=== PATIENT | female | born 1985 | race Asian ===

== ENCOUNTER 2023-04-11 14:02 | Outpatient (CLI) | payer OTHER | END 2023-04-11 18:10 | disposition home or self-care (01) | LOC: SUS 14:02 | PROVIDERS: ATTEND Nurse Practitioner Family | DX: E04.2 Nontoxic multinodular goiter (principal); E03.9 Hypothyroidism, unspecified | CPT/HCPCS: 76536-TC ==

== ENCOUNTER 2023-04-18 09:16 | Outpatient (CLI) | payer OTHER ==
[2023-04-18 10:16] LABS: BASOPHILS % (AUTO) 0.5 % (0.0-2.0); EOSINOPHILS # (AUTO) 0.1 K/uL (0.0-0.4); EOSINOPHILS % (AUTO) 1.1 % (0.0-4.0); HEMATOCRIT 39.2 % (36-48); HEMOGLOBIN 12.5 g/dL (12.0-16.0); LYMPHOCYTES % (AUTO) 29.1 % (20.5-51.5); MEAN CORPUSCULAR HEMOGLOBIN 28 pg (27-31); MEAN CORPUSCULAR HGB CONC 32 % (32-36); MEAN CORPUSCULAR VOLUME 87 fL (79.0-98.0); MONOCYTES # (AUTO) 0.4 K/uL (0.0-1.0); MONOCYTES % (AUTO) 5.5 % (1.7-9.3); NEUTROPHILS # (AUTO) 4.4 K/uL (1.8-7.7); NEUTROPHILS % (AUTO) 63.8 % (40.0-70.0); PLATELET COUNT (AUTO) 170 K/uL (130-430); RED BLOOD CELL COUNT(AUTO) 4.53 MIL/uL (4.2-6.2); RED CELL DISTRIBUTION WIDTH 14.4 % (9.0-15.0); WHITE BLOOD COUNT (AUTO) 6.9 K/uL (4.8-10.8)
[2023-04-18 10:20] LABS: ERYTHROCYTE SEDIMENTATION RATE 25 MM/HR (0-20)
[2023-04-18 11:19] LABS: ALBUMIN 3.5 g/dL (3.4-4.8); CALCIUM 8.5 mg/dL (8.4-11.0); CREATININE 0.7 mg/dL (0.55-1.30); FREE T4 (FREE THYROXINE) 1.3 ng/dl (0.8-1.5); POTASSIUM 3.8 mmol/L (3.5-5.1); THYROID STIMULATING HORMONE 3.44 uIu/mL (0.36-3.74); TOTAL BILIRUBIN 0.7 mg/dL (0.0-1.0); TOTAL PROTEIN, SERUM 7.3 g/dL (6.4-8.3)
[2023-04-19 09:07] LABS: ANTI NUCLEAR AB WITH REFLEX Negative (Negative)
[2023-04-19 13:07] LABS: THYROID PEROXIDASE (TPO) AB <9 IU/mL (0-34)
== END 2023-04-18 17:39 | disposition home or self-care (01) ==
LOC: SLB 09:16
PROVIDERS: ATTEND Nurse Practitioner Family
DX: Z00.00 Encounter for general adult medical examination without abnormal findings (principal); E78.5 Hyperlipidemia, unspecified; R53.83 Other fatigue; M79.10 Myalgia, unspecified site; E55.9 Vitamin D deficiency, unspecified
CPT/HCPCS: 36415; 80053; 80061; 82306; 84439; 84443; 85025; 85651-TC; 86038; 86376

== ENCOUNTER 2023-08-27 11:48 | Emergency (ER) | payer OTHER ==
[~2023-08-27] VITALS: Ht 152.4 cm; Wt 84.4 kg
[2023-08-27 11:56] VITALS: BP_SYST 132; PULSE 89; RESP 18; TEMP 98.5; O2SAT 100
[2023-08-27] MEDS ORDERED: SOM350 PO (13:50)
[2023-08-27] MEDS ORDERED: IBUP-1969 PO (13:50)
[2023-08-27 19:14] VITALS: BP_SYST 132; PULSE 89; RESP 18; TEMP 98.5; O2SAT 100
== END 2023-08-27 14:15 | disposition home or self-care (01) ==
LOC: SED 11:48
DX: S33.5XXA Sprain of ligaments of lumbar spine, initial encounter (principal); Z79.899 Other long term (current) drug therapy; V89.2XXA Person injured in unspecified motor-vehicle accident, traffic, initial encounter; Y93.89 Activity, other specified; Y92.89 Other specified places as the place of occurrence of the external cause; Y99.8 Other external cause status
CPT/HCPCS: 72040-TC; 72148; 99284

== ENCOUNTER 2023-10-21 22:17 | Emergency (ER) | payer OTHER ==
[~2023-10-21] VITALS: Ht 162.6 cm; Wt 86.2 kg
[~2023-10-21 22:17] MED LIST: IBUP-1969 PO; SOM350 PO
[2023-10-21 22:29] VITALS: BP_SYST 113; PULSE 61; RESP 16; TEMP 98.1; O2SAT 100
[2023-10-21] MEDS: NACL 0.9% 1,000 ML IV ONE (22:55)
[2023-10-21 23:24] LABS: BASOPHILS % (AUTO) 0.3 % (0.0-2.0); EOSINOPHILS # (AUTO) 0.1 K/uL (0.0-0.4); EOSINOPHILS % (AUTO) 1.4 % (0.0-4.0); HEMATOCRIT 35.9 % (36-48); HEMOGLOBIN 12.2 g/dL (12.0-16.0); LYMPHOCYTES % (AUTO) 36.2 % (20.5-51.5); MEAN CORPUSCULAR HEMOGLOBIN 29 pg (27-31); MEAN CORPUSCULAR HGB CONC 34 % (32-36); MEAN CORPUSCULAR VOLUME 86 fL (79.0-98.0); MONOCYTES # (AUTO) 0.5 K/uL (0.0-1.0); MONOCYTES % (AUTO) 6.3 % (1.7-9.3); NEUTROPHILS # (AUTO) 4.6 K/uL (1.8-7.7); NEUTROPHILS % (AUTO) 55.8 % (40.0-70.0); PLATELET COUNT (AUTO) 204 K/uL (130-430); RED BLOOD CELL COUNT(AUTO) 4.18 MIL/uL (4.2-6.2); RED CELL DISTRIBUTION WIDTH 13.9 % (9.0-15.0); WHITE BLOOD COUNT (AUTO) 8.2 K/uL (4.8-10.8)
[2023-10-21] MEDS: ONDANSETRON HCL 4 MG/2 ML VIAL IVP ONE (23:26)
[2023-10-21] MEDS: metroNIDAZOLE 500 mg/NS 100 ML IV ONE (23:27)
[2023-10-21] MEDS: KETOROLAC TROMETHAMINE 30 MG VIAL IVP ONE (23:27)
[2023-10-21 23:28] LABS: CALCIUM 9.4 mg/dL (8.4-11.0); CREATININE 0.79 mg/dL (0.55-1.30); POTASSIUM 3.8 mmol/L (3.5-5.1)
[2023-10-21 23:32] LABS: ALBUMIN 3.5 g/dL (3.4-4.8); BILIRUBIN,DIRECT 0.1 mg/dL (0.0-0.3); TOTAL BILIRUBIN 0.3 mg/dL (0.0-1.0); TOTAL PROTEIN, SERUM 7.7 g/dL (6.4-8.3)
[2023-10-22 01:30] VITALS: BP_SYST 99; PULSE 68; RESP 16; TEMP 97.7; O2SAT 98
[2023-10-22 02:28] LABS: BILIRUBIN,URINE NEGATIVE (NEGATIVE); COLOR,URINE YELLOW (YELLOW); GLUCOSE,URINE NEGATIVE (NEGATIVE); KETONES,URINE NEGATIVE (NEGATIVE); LEUKOCYTE ESTERASE ,URINE NEGATIVE (NEGATIVE); NITRITE, URINE NEGATIVE (NEGATIVE); PROTEIN URINE NEGATIVE (NEGATIVE); UROBILINOGEN,URINE 0.2 (0.2-1.0)
[2023-10-22 02:30] LABS: BLOOD, URINE 1+ (NEGATIVE); CLARITY/URINE HAZY (CLEAR)
[2023-10-22 02:31] LABS: BACTERIA,URINE None Seen /HPF (None Seen); WBC,URINE 0-3 /HPF (0-3)
[2023-10-22] MEDS ORDERED: METR-154 PO (05:01)
== END 2023-10-22 05:10 | disposition home or self-care (01) ==
LOC: SED 22:17
DX: A09 Infectious gastroenteritis and colitis, unspecified (principal); R10.9 Unspecified abdominal pain; Z79.899 Other long term (current) drug therapy
CPT/HCPCS: 99285; 96365; 96375; 96361; 80076; 80048; 81001; 85025; 87040; 36415; 83605; 81000; 74176; 81015; J1885; J3490; J2405; J7030

== ENCOUNTER 2024-01-02 19:49 | Emergency (ER) | payer OTHER ==
[~2024-01-02] VITALS: Ht 152.4 cm; Wt 86.2 kg
[~2024-01-02 19:49] MED LIST changes: +METR-154 PO
[2024-01-02 19:51] VITALS: BP_SYST 153; PULSE 107; RESP 18; TEMP 98; O2SAT 98
[2024-01-02 20:44] LABS: BASOPHILS % (AUTO) 0.5 % (0.0-2.0); EOSINOPHILS # (AUTO) 0.1 K/uL (0.0-0.4); EOSINOPHILS % (AUTO) 2.4 % (0.0-4.0); HEMATOCRIT 36.3 % (36-48); HEMOGLOBIN 12.3 g/dL (12.0-16.0); LYMPHOCYTES # (AUTO) 1.7 K/uL (1.0-5.5); LYMPHOCYTES % (AUTO) 32.8 % (20.5-51.5); MEAN CORPUSCULAR HEMOGLOBIN 29 pg (27-31); MEAN CORPUSCULAR HGB CONC 34 % (32-36); MEAN CORPUSCULAR VOLUME 85 fL (79.0-98.0); MONOCYTES # (AUTO) 0.6 K/uL (0.0-1.0); MONOCYTES % (AUTO) 11.2 % (1.7-9.3); NEUTROPHILS # (AUTO) 2.7 K/uL (1.8-7.7); NEUTROPHILS % (AUTO) 53.1 % (40.0-70.0); PLATELET COUNT (AUTO) 153 K/uL (130-430); RED BLOOD CELL COUNT(AUTO) 4.26 MIL/uL (4.2-6.2); RED CELL DISTRIBUTION WIDTH 13.4 % (9.0-15.0); WHITE BLOOD COUNT (AUTO) 5.2 K/uL (4.8-10.8)
[2024-01-02 21:23] LABS: ANION GAP 10 (5-15); CALCIUM 8.7 mg/dL (8.4-11.0); CARBON DIOXIDE 27 mmol/L (23-29); CHLORIDE 106 mmol/L (98-107); CREATININE 0.79 mg/dL (0.55-1.30); GFR AFRICAN AMERICAN 105 mL/min (>90); GLUCOSE 89 mg/dL (74-106); POTASSIUM 3.4 mmol/L (3.5-5.1); SODIUM SERUM 143 mmol/L (136-145); UREA NITROGEN, BLOOD 6 mg/dL (8-21)
[2024-01-02 21:25] LABS: GFR NON AFRICAN-AMERICAN 87 mL/min (>90)
[2024-01-02] MEDS: ALBUTEROL SULFATE 0.083% 2.5 MG/3 ML VIAL.NEB INH ONE (21:29)
[2024-01-02] MEDS: IPRATROPIUM BROM 0.5 MG/2.5 ML VIAL.NEB (ATROVENT) INH ONE (21:30)
[2024-01-02] MEDS: ACETAMINOPHEN 500 MG TABLET PO ONE (22:00)
[2024-01-02] MEDS: KETOROLAC TROMETHAMINE 15 MG VIAL IVP ONE (22:05)
[2024-01-02] MEDS ORDERED: PRED20TA PO (22:27)
[2024-01-02] MEDS ORDERED: ALBMDI INH (22:27)
[2024-01-02] MEDS: predniSONE 20 MG TABLET PO ONE (22:36)
[2024-01-02 22:45] VITALS: BP_SYST 106; PULSE 102; RESP 20; TEMP 98.1; O2SAT 98
[2024-01-02 23:19] LABS: COVID19 ANTIGEN SOFIA FIA NEGATIVE (NEGATIVE)
[2024-01-02 23:41] LABS: INFLUENZA TYPE A Negative (NEGATIVE); INFLUENZA TYPE B NEGATIVE (NEGATIVE)
== END 2024-01-02 22:45 | disposition home or self-care (01) ==
LOC: SED 19:49
DX: J45.901 Unspecified asthma with (acute) exacerbation (principal); J20.9 Acute bronchitis, unspecified; R07.9 Chest pain, unspecified; B34.9 Viral infection, unspecified; Z20.822 Contact with and (suspected) exposure to COVID-19; R00.0 Tachycardia, unspecified; Z79.899 Other long term (current) drug therapy; Z79.2 Long term (current) use of antibiotics
CPT/HCPCS: 99285; 96374; 71045; 87426; 80048; 83880; 85025; 84484; 36415; 93005; 94640; 81025; 87804 ×2; J7512; J1885